=== PATIENT | female | born 1960 | race Caucasian/White ===

== ENCOUNTER → 2023-12-19 16:03 | Outpatient (REF) | payer OTHER, SELFPAY | LOC: RAD 16:03 | PROVIDERS: ATTENDING PHYSICIAN Internal Medicine; FAMILY PHYSICIAN Internal Medicine | DX: R07.89 Other chest pain (principal) | CPT/HCPCS: 71101 ==

== ENCOUNTER → 2024-02-14 08:23 | Outpatient (REF) | payer OTHER, SELFPAY | LOC: RAD 08:23 | PROVIDERS: ATTENDING PHYSICIAN Urology; FAMILY PHYSICIAN Internal Medicine; REFERRING PHYSICIAN Internal Medicine | DX: N39.3 Stress incontinence (female) (male) (principal); N39.41 Urge incontinence; M62.89 Other specified disorders of muscle; E04.1 Nontoxic single thyroid nodule | CPT/HCPCS: 76536; 76770; 76856 ==

== ENCOUNTER → 2024-02-29 13:15 | Outpatient (REF) | payer OTHER, SELFPAY | LOC: WDC 13:15 | PROVIDERS: ATTENDING PHYSICIAN Obstetrics & Gynecology; FAMILY PHYSICIAN Internal Medicine | DX: Z12.31 Encounter for screening mammogram for malignant neoplasm of breast (principal) | CPT/HCPCS: 77063; 77067 ==

== ENCOUNTER → 2024-04-29 08:50 | Outpatient (REF) | payer OTHER, SELFPAY | LOC: RAD 08:50 | PROVIDERS: ATTENDING PHYSICIAN Internal Medicine | DX: E66.811 Obesity, class 1 (principal); G47.33 Obstructive sleep apnea (adult) (pediatric) | CPT/HCPCS: 75571 ==

== ENCOUNTER 2024-10-29 17:47 | Outpatient (RCR) | payer OTHER, SELFPAY | END 2024-10-29 23:59 | disposition home or self-care (01) | LOC: RPT 17:47 | PROVIDERS: ATTENDING PHYSICIAN Urology; FAMILY PHYSICIAN Internal Medicine | DX: N32.81 Overactive bladder (principal); N39.3 Stress incontinence (female) (male); M62.89 Other specified disorders of muscle; Z73.6 Limitation of activities due to disability | CPT/HCPCS: 97110; 97112; 97140; 97162; 97530 ==

== ENCOUNTER 2024-11-24 16:58 | Outpatient (RCR) | payer OTHER, SELFPAY | END 2024-11-24 23:59 | disposition home or self-care (01) | LOC: RPT 16:58 | PROVIDERS: ATTENDING PHYSICIAN Urology; FAMILY PHYSICIAN Internal Medicine | DX: N32.81 Overactive bladder (principal); N39.3 Stress incontinence (female) (male); M62.89 Other specified disorders of muscle; Z73.6 Limitation of activities due to disability | CPT/HCPCS: 97014; 97110; 97112; 97140; 97530 ==

== ENCOUNTER 2024-12-31 15:58 | Outpatient (RCR) | payer OTHER, SELFPAY | END 2024-12-31 23:59 | disposition home or self-care (01) | LOC: RPT 15:58 | PROVIDERS: ATTENDING PHYSICIAN Urology; FAMILY PHYSICIAN Internal Medicine | DX: N32.81 Overactive bladder (principal); N39.3 Stress incontinence (female) (male); M62.89 Other specified disorders of muscle; Z73.6 Limitation of activities due to disability | CPT/HCPCS: 97014; 97110; 97112; 97530 ==

== ENCOUNTER 2025-02-04 15:59 | Outpatient (RCR) | payer OTHER, SELFPAY | END 2025-02-05 06:58 | disposition home or self-care (01) | LOC: RPT 15:59 | PROVIDERS: ATTENDING PHYSICIAN Urology; FAMILY PHYSICIAN Internal Medicine | DX: N32.81 Overactive bladder (principal); N39.3 Stress incontinence (female) (male); M62.89 Other specified disorders of muscle; Z73.6 Limitation of activities due to disability | CPT/HCPCS: 97110; 97140; 97530 ==

== ENCOUNTER → 2025-03-02 16:05 | Outpatient (REF) | payer OTHER, SELFPAY | LOC: WDC 16:05 | PROVIDERS: ATTENDING PHYSICIAN Obstetrics & Gynecology; FAMILY PHYSICIAN Internal Medicine | DX: Z12.31 Encounter for screening mammogram for malignant neoplasm of breast (principal) | CPT/HCPCS: 77063; 77067 ==